=== PATIENT | male | born 1930 | race Caucasian/White ===

== ENCOUNTER → 2017-01-15 | Outpatient (CLI) | payer OTHER ==
[~2017-01-15] VITALS: Ht 177.8 cm; Wt 67.1 kg
[~2017-01-15] MED LIST: AMLODIPINE BESYL5 MG PO; ANDROGEL75 GM TD; ASA81BEC; ASPIR 8181 MG PO; CARDURA XL4 MG PO; CARDURA2 MG PO; CELEBREX100 MG/1 C PO; COLACE100 MG PO; FINASTERIDE5 MG PO; GLUCOSAMINE CH1 EAC2 PO; HYDROCODONE-AP1 EAC6 PO; KEFLEX500 MG PO; KLOR-CON 1010 MEQ PO; LASIX 40 MG TAB40 M1 PO; LISINOPRIL20 MG PO; LOPRESSOR25 PO; MELATONIN5 M1 PO; NAPROSYN375 MG PO; NAPROSYN500 MG PO; NAPROXEN PO; NORCO 5-325 TA1 EACH PO; OMEPRAZOLE 20 M20 M1 PO; ROBAXIN 750 MG750 M1 PO; SIMVASTATIN40 MG PO; TOPROL XL25 MG PO; TOPROL XL50 MG PO; TRAMADOL 50 MG50 MG PO; TRAMADOL HCL E100 M1 PO; UNICOMPLEX M TA1 TA1 PO; VITAMIN B12 SUBLING; VITAMIN D1000 UNI1 PO; ZESTRIL20 MG PO
--- NOTE | ~2017-01-15 | HPC ---
[facility] [address] [address] PAIN MANAGEMENT CONSULTATION Name: AYLIN ARMSTRONG Room #: REG JOSEYovany Escobedo#: [id number] Admission: 01/15/17 Attend Phys: Doc Merritt DO Discharge: Date of : 30 Report #: [id number] THIS REPORT FOR: //name// CC: Oseas Merritt SUBJECTIVE: The patient is a healthy 87-year-old gentleman being seen for some chronic axial low back and left hip pain. He was last seen in the pain clinic back in May. Left hip joint injection had given him 100% relief for 5 days, pain has continued, looks primarily like left hip DJD. He has continued with physical therapy usually once every 2 weeks, with tramadol for pain. The patient states he sleeps well, but when he gets up, after about 10-15 steps, he has acute pain in the left hip. He takes the tramadol first thing in the morning, but pain interferes with function. He states he can go to the bathroom, go down stairs, get his newspaper, and get breakfast, and then, he simply has to sit down until the tramadol "kicks in." Notes the pain is anywhere from 8-9 on a 0-10 visual analog scale in the morning, but presently, pain is fairly nominal. Notes no radiating component. Notes no weakness in his legs. PHYSICAL EXAMINATION: GENERAL: An 87-year-old gentleman. VITAL SIGNS: BMI is 21.2 kilograms per meter squared. Blood pressure 167/86, pulse 56, respirations are 20. NEUROLOGIC: Alert and oriented to person, place and time. Judged to be a reasonable historian. Rises from the chair easily. Gait is tandem. Subjective pain in the left hip. Lower extremity strength is preserved. Pain with abduction, rotation of the hip. SKIN AND INTEGUMENT: Intact. ASSESSMENT: Symptomatic degenerative joint disease, left hip. History of axial back pain requiring complex medication management. RECOMMENDATIONS: Long discussion with the patient today about therapeutic options. I still recommend that he continue aggressive exercising in range of motion. I think physical therapy every 2 weeks is certainly reasonable. The patient and his are moving to a custodial community. He is enthusiastic about some of the activities that will be available for him there. We talked about medication management at length. He has been relatively stable on tramadol, but with significant pain in the morning that interferes with function, we have elected to trial a little different approach, we will trial a long-acting tramadol tablet (tramadol extended release 100 mg) at bedtime. Hopefully, this will allow him to awake in the morning with some tramadol on-board, he may be able to be a little more functional in the morning and/or certainly have better and/or quicker relief from his a.m. tablet. I have [address] [address] PAIN MANAGEMENT CONSULTATION Name: AYLIN ARMSTRONG Room #: REG AKHIL Escobedo#: [id number] Admission: 01/15/17 Attend Phys: Doc Merritt DO Discharge: Date of : 30 Report #: [id number] taken the liberty of writing for tramadol extended release 100 mg 30 tablets with 5 refills and tramadol 50 mg t.i.d. for breakthrough pain, 90 tablets with 5 refills. Ultimately, the patient was discharged in good and stable condition. He was seen from approximately 1406 to 1431, greater than 50% of the time was spent reviewing history, discussing therapeutic options and counseling the patient. <ELECTRONICALLY SIGNED> By: Doc Merritt DO 01/16/17 0925 [id number] 0618 Doc Merritt DO /nt
[2017-01-15 13:55] VITALS: BP 167/86
== END ==
LOC: PAIN 07:48
DX: G89.29 Other chronic pain (principal); M16.12 Unilateral primary osteoarthritis, left hip; I10 Essential (primary) hypertension

== ENCOUNTER → 2017-12-24 | Outpatient (CLI) | payer OTHER ==
[~2017-12-24] VITALS: Ht 177.8 cm; Wt 67.5 kg
[~2017-12-24] MED LIST changes: +FLOMAX0.4 MG PO; +NORVASC5 MG PO
--- NOTE | ~2017-12-24 | HPC ---
[facility] [place] [address] [place] [address] PAIN MANAGEMENT CONSULTATION Name: AYLIN ARMSTRONG Room #: REG JOSEYovany Escobedo#: [id number] Admission: 12/24/17 Attend Phys: Doc Merritt DO Discharge: Date of : 30 Report #: [id number] THIS REPORT FOR: //name// CC: Oseas Merritt DATE OF SERVICE: 12/24/2017 The patient is a pleasant 87-year-old gentleman seen about a year ago 12/2016, somewhat lost to follow up. Returns to pain clinic today. He notes pain has begun to recur in his bilateral legs and "sciatic" distribution. He notes symptoms are associated with acute spasm in the right lópez with a nonvolitional right foot dorsiflexion. He notes pain radiates down the lateral aspect of the leg to the foot. The patient is status post 2 back surgeries, had generally done reasonably well. Again, when I saw him last year, he was continuing physical therapy, taking rare tramadol for pain. He still is taking Celebrex 100 mg once a day, tramadol 50 mg typically 1 tablet around 1700 hours and again at bedtime. Uses a cane for balance, which he has "for years." Rates his pain a 2-3 on VAS, but notes that the lancinating "sciatic" radicular pain, specifically down the lateral aspect of the legs, right greater than left with spasm in the right anterior tibialis is episodic and quite problematic at night. PHYSICAL EXAMINATION: Shows an 87-year-old gentleman, BMI is 21.4 kilograms per meter squared. Blood pressure 174/74, pulse 70, respirations are 20, room air oxygen saturation 97%. Pain at present is only 2-3 on VAS. He has not fallen in the last 3 months. Does use a cane for balance. Functional assessment tool score is on EMR. Rises from the chair using the armrest, though second time he william, he did not use the armrest and simply using core strength and legs. Gait is generally tandem. Does have a positive straight leg raise on the right. Slight decreased right hip flexion strength. Slight decreased right dorsiflexion strength. Heart is regular and rhythmical with a grade 2/6 systolic ejection murmur. He is status post bovine heart valve replacement. He is not on a blood thinner. Medication list was reconciled including the aforementioned tramadol, amlodipine, tamsulosin, Celebrex at 100 mg. ASSESSMENT: Symptomatic lumbar radiculopathy, axial back pain, history of left hip osteoarthritis. RECOMMENDATIONS: We will seek authorization for lumbar epidural injection at L4-L5. He has done well with occasional injections, last epidural injection was 02/2016. He does have ongoing radicular pain, sciatic distribution with [facility] [address] [place] [address] PAIN MANAGEMENT CONSULTATION Name: AYLIN ARMSTRONG Room #: REG [facility] Gregg#: [id number] Admission: 12/24/17 Attend Phys: Doc Merritt DO Discharge: Date of : 30 Report #: [id number] positive neural tensioning symptoms on the right. Discharged in good and stable condition. Follow up next week for ARUNA. <ELECTRONICALLY SIGNED> By: Doc Merritt DO 12/28/17 0756 1522 1807 Doc Merritt DO /nt
[2017-12-24 11:42] VITALS: BP 174/74
== END ==
LOC: PAIN 07:25
DX: M54.16 Radiculopathy, lumbar region (principal); M16.12 Unilateral primary osteoarthritis, left hip

== ENCOUNTER → 2018-03-18 | Outpatient (CLI) | payer OTHER ==
--- NOTE | ~2018-03-18 | 2DMMODE ---
[facility] [place] [address] 2 D/M-MODE ECHOCARDIOGRAM Name: AYLIN ARMSTRONG Room #: REG [facility]#: [id number] Admission: 03/18/18 Attend Phys: Bandar Cerrato, Discharge: Date of : 30 Date of Service: 03/19/18 0721 Report #: [id number] THIS REPORT FOR: //name// APPROVED REPORT Study performed: 03/18/2018 14:56:01 EXAM: Comprehensive 2D, Doppler, and color-flow Echocardiogram Patient Location: Out-Patient Status: routine BSA: 1.79 HR: 69 bpm BP: 151/75 mmHg Rhythm: IRREGULAR Other Information Study Quality: Good Indications Congestive Heart Failure Hx: CABG, AV replacement, HTN 2D Dimensions RVDd: 36.54 mm LVEF(%): 41.53 (>50%) IVSd: 12.00 (7-11mm) LVDd: 59.00 mm PWd: 8.34 (7-11mm) LVDs: 46.79 (25-40mm) Aortic Root: 33.47 mm Mason's LVEF: 41.53 % Volumes Left Atrial Volume (Systole) Single Plane 4CH: 85.81 mL Single Plane 2CH: 89.49 mL LA ESV Index: 52.00 mL/m2 Aortic Valve AoV Peak Rm.: 3.89 m/s AO Peak Gr.: 60.59 mmHg LVOT Max P.57 mmHg AO Mean Gr.: 35.59 mmHg AO V2 Mean: 2.82 m/s LVOT Max V: 1.07 m/s AO V2 VTI: 89.78 cm Mitral Valve [facility] [address] [place] [address] 2 D/M-MODE ECHOCARDIOGRAM Name: AYLIN ARMSTRONG Room #: [facility]#: [id number] Admission: 03/18/18 Attend Phys: Bandar Cerrato, Discharge: Date of : 30 Date of Service: 03/19/18 0721 Report #: [id number] E/A Ratio: 0.7 MV Decel. Time: 447.44 ms MV E Max Rm.: 0.86 m/s MV A Rm.: 1.27 m/s MV PHT: 129.76 ms IVRT: 89.97 ms Pulmonary Valve PV Peak Rm.: 1.01 m/s PV Peak Gr.: 4.06 mmHg Pulmonary Vein P Vein S: 0.54 m/s P Vein D: 0.41 m/s P Vein S/D Ratio: 1.32 Tricuspid Valve RAP Estimate: 5.00 mmHg Left Ventricle Left ventricle is mildly dilated. Mild septal hypertrophy is present. Left ventricular systolic function is moderately decreased. Inferior and inferoseptal hypokinesis LVEF is 40%. Mild diastolic dysfunction is present (impaired relaxation pattern). Right Ventricle The right ventricle is normal size. The right ventricular systolic function is normal. Atria Left atrium is dilated. The right atrium size is normal. Aortic Valve Bioprosthetic aortic valve is present; Barkley 23mm. Peak velocity of 3.9m/s with a peak pressure gradient of 61mmHg and a mean of 36mmHg. No aortic regurgitation is present. Mitral Valve Mitral valve leaflets are thickened. Mild to moderate mitral annular calcification. Mild mitral regurgitation. No evidence of mitral valve stenosis. Tricuspid Valve The tricuspid valve is normal in structure. Trace tricuspid regurgitation. Unable to assess PA pressure. Pulmonic Valve [facility] [address] [place] [address] 2 D/M-MODE ECHOCARDIOGRAM Name: AYLIN ARMSTRONG Room #: REG [facility]#: [id number] Admission: 03/18/18 Attend Phys: Bandar Cerrato, Discharge: Date of : 30 Date of Service: 03/19/18 0721 Report #: [id number] The pulmonary valve is normal in structure. Trace pulmonic regurgitation. Great Vessels The aortic root is normal in size. Ascending aorta is not well visualized. IVC is normal in size and collapses >50% with inspiration. Pericardium There is no pericardial effusion. <Conclusion> Left ventricular systolic function is moderately decreased. Inferior and inferoseptal hypokinesis LVEF is 40%. Mild diastolic dysfunction Left atrium is dilated. Bioprosthetic aortic valv; Barkley 23mm. Peak velocity of 3.9m/s with a peak pressure gradient of 61mmHg and a mean of 36mmHg. No aortic regurgitation is present. Moderate prosthetic valve stenosis Mitral valve leaflets are thickened. Mild to moderate mitral annular calcification. Mild mitral regurgitation. Pulmonary artery pressure could not be reliably ascertained There is no pericardial effusion. <ELECTRONICALLY SIGNED> By: Bandar Cerrato MD, FACC 03/19/18720 0 0 Bandar Cerrato MD, FACC /INF
== END ==
LOC: ULTRA 03-12 16:01
DX: I11.0 Hypertensive heart disease with heart failure (principal); I50.9 Heart failure, unspecified; I65.23 Occlusion and stenosis of bilateral carotid arteries; I34.0 Nonrheumatic mitral (valve) insufficiency; R55 Syncope and collapse

== ENCOUNTER → 2018-12-31 | Outpatient (CLI) | payer OTHER ==
--- NOTE | 2019-01-01 19:07 | 2DMMODE ---
[facility] [place] [place] [address] 2 D/M-MODE ECHOCARDIOGRAM Name: AYLIN ARMSTRONG Room #: REG [facility]#: [id number] ������������� Admission: 12/31/18 ������������� Attend Phys: Bandar Cerrato, Discharge: ��� ������������� ��� Date of : 30 Date of Service: 01/01/19 1907 �� Report #: [id number] �������� ��������������������������������������������[id number] THIS REPORT FOR: //name// APPROVED REPORT Study performed: 12/31/2018 13:01:15 EXAM: Comprehensive 2D, Doppler, and color-flow Echocardiogram Patient Location: Out-Patient Status: routine BSA: 1.83 HR: 95 bpm BP: 148/82 mmHg Rhythm: Atrial Fibrillation Other Information Study Quality: Good Indications AV replacement, Hfib, CABG, CHF. 2D Dimensions RVDd: 35.96 mm IVSd: 11.29 (7-11mm) LVOT Diam: 20.25 (18-24mm) LVDd: 56.04 mm PWd: 9.33 (7-11mm) LVDs: 49.72 (25-40mm) Aortic Root: 31.59 mm Volumes Left Atrial Volume (Systole) Single Plane 4CH: 78.57 mL Single Plane 2CH: 112.53 mL LA ESV Index: 55.00 mL/m2 Aortic Valve AoV Peak Rm.: 2.67 m/s AO Peak Gr.: 29.65 mmHg LVOT Max P.95 mmHg AO Mean Gr.: 17.64 mmHg AO V2 Mean: 1.98 m/s LVOT Max V: 0.85 m/s AO V2 VTI: 48.21 cm COLTON Vmax: 1.03 cm2 Mitral Valve MV Decel. Time: 113.39 ms [facility] [place] [address] [place] [address] 2 D/M-MODE ECHOCARDIOGRAM Name: CARTERLEE FINNNicolas Carroll Room #: REG [facility]#: [id number] ������������� Admission: 12/31/18 ������������� Attend Phys: Bandar Cerrato, Discharge: ��� ������������� ��� Date of : 30 Date of Service: 01/01/19 1907 �� Report #: [id number] �������� ��������������������������������������������[id number] MV E Max Rm.: 1.56 m/s Pulmonary Valve PV Peak Rm.: 0.72 m/s PV Peak Gr.: 2.08 mmHg Tricuspid Valve RAP Estimate: 5.00 mmHg Left Ventricle The left ventricle is normal size. Mild septal hypertrophy is present. Left ventricular systolic function is moderate to severely decreased. Hypokinesis base of inferior wall LVEF is 30%. This study is not technically sufficient to allow evaluation of the LV diastolic function due to atrial fibrillation. Right Ventricle The right ventricle is normal size. Right ventricle is mildly hypokinetic. Atria Left atrium is severely dilated. The right atrium size is normal. Aortic Valve An Barkley 23mm, bioprosthetic valve, mild-moderate posthetic valve stenosis. Average peak gradient of 30mmHg and mean of 18mmHg. Trace aortic regurgitation. Mitral Valve Mild to moderate mitral annular calcification. Mild leaflet thickening Moderate mitral regurgitation. Tricuspid Valve The tricuspid valve is normal in structure. Trace to mild tricuspid regurgitation. Unable to assess PA pressure. Pulmonic Valve Pulmonic valve is not well visualized. Trace pulmonic regurgitation. Great Vessels The aortic root is normal in size. Ascending aorta is not well visualized. IVC is normal in size and collapses >50% with inspiration. Pericardium [facility] [place] [place] [address] 2 D/M-MODE ECHOCARDIOGRAM Name: AYLIN ARMSTRONG Room #: REG CL [facility]#: [id number] ������������� Admission: 12/31/18 ������������� Attend Phys: Bandar Cerrato, Discharge: ��� ������������� ��� Date of : 30 Date of Service: 01/01/19 190 �� Report #: [id number] �������� ��������������������������������������������[id number] There is no pericardial effusion. <Conclusion> Left ventricular systolic function is moderate to severely decreased. Hypokinesis base of inferior wall LVEF is 30%. Left atrium is severely dilated. An Barkley 23mm, bioprosthetic valve, mild-moderate posthetic valve stenosis. Average peak gradient of 30mmHg and mean of 18mmHg. Trace aortic regurgitation. Mild to moderate mitral annular calcification. Mild leaflet thickening. Moderate mitral regurgitation Pulmonary artery pressure could not be reliably ascertained. There is no pericardial effusion. ��������������������������������������������� <ELECTRONICALLY SIGNED> ���������������������������������������� By: Bandar Cerrato MD, [facility] ��������������������������������������������� 01/01/191906 06 06 Bandar Cerrato MD, FAC /INF
== END ==
LOC: CV 12:44
DX: I08.3 Combined rheumatic disorders of mitral, aortic and tricuspid valves (principal); I48.91 Unspecified atrial fibrillation; I50.9 Heart failure, unspecified; Z95.4 Presence of other heart-valve replacement

== ENCOUNTER → 2019-01-27 | Outpatient (CLI) | payer OTHER ==
[~2019-01-27] VITALS: Ht 177.8 cm; Wt 68.0 kg
[~2019-01-27] MED LIST changes: +ELIQUIS5 MG PO; +PACERONE 200 M200 M1 PO
[2019-01-27 07:35] VITALS: BP 132/82
--- NOTE | 2019-01-27 09:12 | TEE ---
[facility] [address] [place] [address] TRANSESOPHAGEAL ECHOCARDIOGRAM Name: AYLIN ARMSTRONG Room #: REG [facility]#: [id number] ������������� Admission: 01/27/19 ������������� Attend Phys: Bandar Cerrato, Discharge: ��� ������������� ��� Date of : 30 Date of Service: 01/27/19 0911 �� Report #: [id number] �������� ��������������������������������������������[id number] THIS REPORT FOR: //name// APPROVED REPORT Study performed: 01/27/2019 08:16:44 EXAM: Transesophageal Echocardiogram/Doppler and Cardioversion Patient Location: Out-Patient/CVL Status: routine BSA: 1.83 HR: 79 bpm BP: 148/82 mmHg Rhythm: Atrial Fibrillation Other Information Study Quality: Good Indications Atrial Fibrillation Cardioversion. Hx: AVR, CABG Procedure After obtaining informed consent, patient underwent transesophageal echo in the [employer]. Type of Sedation : Conscious Sedation Sedation was administered by Estrada Tinajero RN. Sedation was achieved intravenously with: Versed (3.5) Fentanyl (50) Transesophageal probe was inserted and advanced into esophagus without difficulty by Bandar Cerrato MD. The DAE was performed without complications. Synchronized Cardioversion attempted: Successful Synchronized Cardioversion acheived with 100, 150 Joules after 2 attempt(s). Rhythm following Synchronized Cardioversion: Normal Sinus Rhythm Throughout the procedure, the blood pressure, pulse oximetry, cardiac rhythm, and rate were monitored. The patient tolerated the procedure without adverse effects. Recovery from conscious sedation was uneventful and vital signs were stable. Left Ventricle The left ventricle is normal size. There is normal left ventricular [facility] [address] [place] [address] TRANSESOPHAGEAL ECHOCARDIOGRAM Name: AYLIN ARMSTRONG Room #: REG CL [facility].#: [id number] ������������� Admission: 01/27/19 ������������� Attend Phys: Bandar Cerrato, Discharge: ��� ������������� ��� Date of : 30 Date of Service: 01/27/19 0911 �� Report #: [id number] �������� ��������������������������������������������[id number] wall thickness. Left ventricular systolic function is moderate to severely decreased. LVEF is 30-35%. Right Ventricle The right ventricle is normal size. Right ventricle is mildly hypokinetic. Atria Left atrium is dilated. No thrombus is visualized in the left atrium or appendage. No shunting noted with contrast bubble injection. Right atrium is dilated. Aortic Valve An Barkley 23mm bioprosthetic aortic valve is present. No aortic regurgitation is present. Mitral Valve The mitral valve is normal in structure. Moderate mitral regurgitation. Tricuspid Valve The tricuspid valve is normal in structure. Trace tricuspid regurgitation. Pulmonic Valve The pulmonary valve is normal in structure. Trace pulmonic regurgitation. Great Vessels The aortic root is normal in size. IVC is normal in size and collapses >50% with inspiration. Pericardium There is no pericardial effusion. <Conclusion> Left ventricular systolic function is moderate to severely decreased. LVEF is 30-35%. Left atrium is dilated. No thrombus is visualized in the left atrium or appendage. No shunting noted with contrast bubble injection. An Barkley 23mm bioprosthetic aortic valve, trileaflet. No aortic regurgitation or stenosis The mitral valve is minimally sclerotic. Moderate mitral regurgitation. [facility] [address] [place] [address] TRANSESOPHAGEAL ECHOCARDIOGRAM Name: AYLIN ARMSTRONG Room #: REG CL [facility]#: [id number] ������������� Admission: 01/27/19 ������������� Attend Phys: Bandar Cerrato, Discharge: ��� ������������� ��� Date of : 30 Date of Service: 01/27/19910 �� Report #: [id number] �������� ��������������������������������������������[id number] There is no pericardial effusion. Successful cardioversion of atrial fibrillation to sinus rhythm following 2 biphasic synchronous joules shocks. ��������������������������������������������� <ELECTRONICALLY SIGNED> ���������������������������������������� By: Bandar Cerrato MD, [facility] ��������������������������������������������� 01/27/19910 0 0 Bandar Cerrato MD, FAC /INF
--- NOTE | 2019-01-28 12:04 | EKG ---
[place] [address] [address] [place] [address] ELECTROCARDIOGRAM REPORT Name: AYLIN ARMSTRONG [id number] ������������������ Admission: 01/27/19 ������������������ Attend Phys: Banadr Cerrato MD, Discharge: ������������������ Date of : 30 Report #: [id number] ����������������������������������������������������������������� [id number] THIS REPORT FOR: //name// [facility] Test Date: 2019-01-27 Test Time: 08:39:33 Pat Name: AYLIN ARMSTRONG Department: Room: Gender: [employer]: Harley SHERWOOD : 1930 Requested By: Bandar Cerrato Order Number: [id number] MD: Bandar Cerrato Measurements Intervals Page Rate: 77 P: 68 AR: 222 QRS: -53 QRSD: 173 T: 86 QT: 451 QTc: 511 Interpretive Statements Sinus rhythm Prolonged AR interval Left bundle branch block Baseline wander in lead(s) V3 Compared to ECG 08/25/2013 09:01:36 First degree AV block now present Left bundle-branch block now present Sinus bradycardia no longer present Electronically Signed On 01-28-2019 12:03:47 CDT by Bandar Cerrato [email or web address] ��������������������������������������������� <ELECTRONICALLY SIGNED> ���������������������������������������� By: Bandar Cerrato MD, [facility] ��������������������������������������������� 01/28/19 1203 0839 0839 Bandar Cerrato MD, [facility] /EPI
== END | disposition home or self-care (01) ==
LOC: CATH 07:05
DX: I34.0 Nonrheumatic mitral (valve) insufficiency (principal); I48.91 Unspecified atrial fibrillation; I11.0 Hypertensive heart disease with heart failure; I50.20 Unspecified systolic (congestive) heart failure; E78.5 Hyperlipidemia, unspecified; I25.2 Old myocardial infarction; Z82.49 Family history of ischemic heart disease and other diseases of the circulatory system; Z87.891 Personal history of nicotine dependence; Z79.01 Long term (current) use of anticoagulants; Z95.1 Presence of aortocoronary bypass graft; Z95.2 Presence of prosthetic heart valve; Z98.890 Other specified postprocedural states; Z79.899 Other long term (current) drug therapy